=== PATIENT | female | born 1965 | race Caucasian/White ===

== ENCOUNTER → 2025-04-26 09:29 | Outpatient (CLI) | payer OTHER, SELFPAY ==
--- NOTE | 2025-04-26 09:31 | DI.RAD.S_ITS ---
PROCEDURE: XR KNEE RT 3V INDICATIONS: Right knee pain TECHNIQUE: 3 views of the knee were acquired. COMPARISON: None. FINDINGS: Bones: Mild medial and patellofemoral joint space narrowing. No fractures or dislocations. No suspicious bony lesions. Soft tissues: No significant joint effusion. No suspicious soft tissue calcifications. IMPRESSION: Mild medial and patellofemoral joint space narrowing. Dictated by: Shelia SOLORZANO Interpreted: Waqar Leung MD on 04/26/2025 at 10:36 Transcribed by: ELAINA on 04/26/2025 at 10:36 Approved by: Waqar Leung M.D. on 04/26/2025 at 20:39
== END ==
PROVIDERS: Referring Provider Nurse Practitioner Family; Visit Provider Nurse Practitioner Family
DX: M25.561 Pain in right knee (principal)
CPT/HCPCS: 73562